=== PATIENT | male | born 1970 | race African-American/Black ===

== ENCOUNTER → 2016-11-30 | Outpatient (CLI) | payer OTHER | END | disposition home or self-care (01) | LOC: HKI 09:42 | PROVIDERS: ATTEND Orthopaedic Surgery | DX: M17.11 Unilateral primary osteoarthritis, right knee (principal); M25.561 Pain in right knee; S83.241D Other tear of medial meniscus, current injury, right knee, subsequent encounter; S83.281D Other tear of lateral meniscus, current injury, right knee, subsequent encounter | CPT/HCPCS: 20610; J7327; Z7500; G0463 ==

== ENCOUNTER → 2017-07-10 | Outpatient (CLI) | payer OTHER ==
--- NOTE | 2017-07-10 10:51 | PN ---
Date/Time of Note Date/Time of Note DATE: 07/10/17 TIME: 10:46 Outpatient Progress Note HPI The patient presents today for a follow-up evaluation on his right knee. We last saw him in November at which point he had his right knee aspirated and injected with Monovisc. He states he had good relief for about 4-5 months but his pain and discomfort have returned. He is having pain with ambulation. He denies any fevers or chills. Injection was therapeutic but has worn off. He presents today for a repeat Monovisc injection to his right knee. Physical Exam On exam today, he is alert and oriented 4, and in no acute distress. Exam of the right knee demonstrates a mild effusion. Range of motion is 0-120. Varus and valgus forces are stable. He has 2+ patellofemoral crepitus. He has diffuse tenderness to palpation along the medial and lateral joint lines. He has a 1+ Adrienne's. Compartments are soft. There is no erythema or warmth noted. Homans sign is negative. He is neurovascularly intact distally. Assessment/Plan Assessment: Right knee osteoarthritis Plan: The patient had a right knee aspiration and Monovisc injection done today. 20 cc of yellow synovial viscous appearing fluid was aspirated without any adverse events. He tolerated the procedure well. I advised him to modify his activity and take [id number] anti-inflammatories or pain medication if needed. We will see him back on an as-needed basis. He is to call the office in the meantime if he has any concerns or adverse events. Procedure: The procedure was fully explained to the patient, and informed consent was obtained prior to the start of the procedure. There is prepped and draped in sterile fashion using Betadine. Ethyl chloride was used to anesthetize the superolateral aspect of the right knee and then the right knee was aspirated, then injected with Monovisc. 20 cc of yellow synovial fluid was aspirated prior to the 4 cc injection of Monovisc. A sterile dressing was then applied. The patient tolerated the procedure well. All questions and concerns were addressed at the time of the procedure. ANTIONETTE CRUZ PA-C Jul 10, 2017 10:50
== END | disposition home or self-care (01) ==
LOC: HKI 10:08
PROVIDERS: ATTEND Orthopaedic Surgery
DX: M17.11 Unilateral primary osteoarthritis, right knee (principal)
CPT/HCPCS: 20610; J7327

== ENCOUNTER → 2017-08-28 | Outpatient (CLI) | payer OTHER ==
--- NOTE | 2017-08-28 14:55 | RADRPT ---
PROCEDURE: Left knee radiographs. CLINICAL INDICATION: Left knee pain. TECHNIQUE: Four views. Weight bearing. Frontal, lateral, oblique, and patellar view. COMPARISON: No prior studies are available for comparison. FINDINGS: There is no fracture or dislocation. There is a small joint effusion. There are degenerative changes with osteophytes arising from the joint margins. There is no joint sp nader narrowing or deformity. There is no lytic or blastic lesion. There is no radiopaque foreign body. IMPRESSION: 1. Small joint effusion. 2. Mild degenerative change. 3. Otherwise unremarkable images of the left knee. RPTAT: QQ .Gumaro Plunkett MD, MD Date Time Electronically viewed and signed by .Gumaro Plunkett MD, MD on 08/28/2017 14:55 .R/
--- NOTE | 2017-08-28 18:45 | HKNOTE ---
DATE OF SERVICE: 08/28/2017 CHIEF COMPLAINT: Left knee pain. HISTORY OF THE PRESENT ILLNESS: This is a 47-year-old male with complaint of left knee pain. He has pain on the outside of his left knee. He has occasional locking, catching and instability of the left knee. He has hemodialysis previous physical therapy with no pain relief. He does not use any assist devices. He does not use any braces. He takes ibuprofen for pain control. He denies any groin or back pain. GAIT: Nonantalgic gait. LEFT KNEE: Neutral alignment and tender over the lateral joint line, nontender over the medial joint line, 0 to 120 degrees range of motion, stable to varus valgus stress. Positive Megha's laterally. Negative anterior drawer and negative posterior drawer. MOTOR STRENGTH: 5 out of 5 hamstrings, tibialis anterior, gastroc soleus, quadriceps and peroneals. PALPABLE PULSES: DP/PT X-rays of the left knee. Three views of the left knee demonstrate minimal degenerative changes. There are no fractures or dislocations. MRI of the left knee: There is a tear of the anterior horn of the lateral meniscus, no tear was identified in the medial meniscus. The cruciate ligaments and collateral ligaments are intact. IMPRESSION: A 47-year-old male with left knee anterior horn lateral meniscal tear. PLAN: He has failed previous nonoperative management. We will request authorization for left knee arthroscopic partial lateral meniscectomy. He will return in 6 weeks. Dictated By: ULICES LILLY/ESDRAS Conf#: [id number] DID#: [id number] PIETRO
== END | disposition home or self-care (01) ==
LOC: HKI 14:53
PROVIDERS: ATTEND Orthopaedic Surgery Adult Reconstructive Orthopaedic Surgery
DX: M23.212 Derangement of anterior horn of medial meniscus due to old tear or injury, left knee (principal)
CPT/HCPCS: 73564; Z7500; G0463

== ENCOUNTER → 2017-10-30 | Outpatient (CLI) | payer OTHER ==
[~2017-10-30] MED LIST: ATEN-51 PO; BENA1TAB14 PO
--- NOTE | 2017-10-31 05:24 | HKNOTE ---
DATE OF SERVICE: CHIEF COMPLAINT: Left knee pain. HISTORY OF PRESENT ILLNESS: This is a 47-year-old male with left knee meniscus tear. He is here to day for his preoperative evaluation. PLAN: I discussed the risks associated with surgery, which include but are not limited to infection , deep venous thrombosis, pulmonary embolism, damage to nerves and blood vessels, progression of art hritis, need for a knee replacement in the future, wound healing problems, heart attack, stroke, ris ks associated with anesthesia and even . I also discussed nonoperative intervention including pain medications, the use of assistive devices, use of a knee brace. The patient would like to proc eed with surgery. Informed consent was obtained. All questions were answered to his satisfaction. He was given a prescription for pain medication. The plan is to proceed with a left knee arthrosco py on 10/31/2017 at [facility]. Dictated By: ULICES LILLY/ESDRAS Conf#: [id number] DID#: [id number]
== END | disposition home or self-care (01) ==
LOC: HKI 09:51
PROVIDERS: ATTEND Orthopaedic Surgery Adult Reconstructive Orthopaedic Surgery
DX: Z01.818 Encounter for other preprocedural examination (principal); M25.562 Pain in left knee
CPT/HCPCS: G0463

== ENCOUNTER 2017-10-31 06:24 | Day surgery (SDC) | payer OTHER ==
[2017-10-30 15:13] VITALS: BMI 31.1
[~2017-10-31] VITALS: Ht 170.2 cm; Wt 91.4 kg
[2017-10-31] VITALS (10 sets, daily range): BP systolic 100–131; BP diastolic 61–86; PULSE 64–80; RESP 12–18; Ht 170.2 cm; Wt 91.4 kg
--- NOTE | 2017-10-31 06:48 | HPN ---
Date/Time of Note Date/Time of Note DATE: 10/31/17 TIME: 06:47 Interval H&P Admission Note Pt. seen H&P reviewed: No system changes SHAHEEN HUGHES PA-C Oct 31, 2017 06:48
[2017-10-31] MEDS ORDERED: ACETAMINOPHEN 1000 MG/100 ML IVPB ONE (07:00)
[2017-10-31] MEDS ORDERED: CELECOXIB 200 MG CAP PO ONE (08:00)
[2017-10-31] MEDS ORDERED: DEXAMETHASONE 4 MG/ML 1 ML INJ IV ONE (08:00)
[2017-10-31] MEDS ORDERED: LANSOPRAZOLE 30 MG CAP PO ONE (08:00)
[2017-10-31] MEDS ORDERED: ACETAMINOPHEN 1000MG/100ML IV 100 ML IVPB ONE (08:00)
[2017-10-31] MEDS ORDERED: VANCOMYCIN 1 GM in NS 250 ML IVPB ONE (08:00)
[2017-10-31] MEDS ORDERED: ONDANSETRON 4 MG INJ IV ONE (08:00)
[2017-10-31] MEDS ORDERED: oxyCODONE (CR) 10 MG TAB [oxyCONTIN] PO ONE (08:00)
[2017-10-31] MEDS ORDERED: LIDOCAINE 1% (MPF) 10 ML INJ INJ ONE (08:39)
[2017-10-31] MEDS ORDERED: TRIAMCINOLONE ACET 40 MG/ML INJ INJ ONE (08:39)
[2017-10-31] MEDS ORDERED: PROPOFOL 20 ML ONE (08:52)
[2017-10-31] MEDS ORDERED: FENTAnyl 50 MCG/ML VIAL IV PRN ×3 (09:00)
[2017-10-31] MEDS ORDERED: MEPERIDINE 25 MG INJ IV PRN (09:00)
[2017-10-31] MEDS ORDERED: HYDROmorphONE (0.2 MG/ML) 10ML SYG IV PRN ×3 (09:00)
[2017-10-31] MEDS ORDERED: KETOROLAC 30 MG INJ IV PRN (09:00)
[2017-10-31] MEDS ORDERED: ONDANSETRON 4 MG INJ IV PRN ×2 (09:00→09:30)
[2017-10-31] MEDS ORDERED: ALBUTEROL 0.083% (NEB) 2.5 MG/3 ML AMP HHN PRN (09:00)
[2017-10-31] MEDS ORDERED: DIPHENHYDRAMINE 50 MG INJ IV PRN (09:00)
[2017-10-31] MEDS ORDERED: EPHEDrine SULFATE 50 MG/5 ML SYG IV PRN (09:00)
[2017-10-31] MEDS ORDERED: LABETALOL HCL 20MG INJ IV PRN (09:00)
[2017-10-31] MEDS ORDERED: OXYCODONE/ACETAMINOPHEN (5/325) TAB PO PRN ×2 (09:00)
[2017-10-31] MEDS ORDERED: hydrALAzine 20 MG INJ IV PRN (09:00)
[2017-10-31] MEDS ORDERED: METOCLOPRAMIDE 10 MG INJ IV PRN (09:00)
[2017-10-31] MEDS ORDERED: HYDROCODONE/APAP (10/325) TAB PO PRN (09:30)
[2017-10-31] MEDS ORDERED: HYDROCODONE/APAP (5/325) TAB PO PRN (09:30)
[2017-10-31] MEDS ORDERED: morphine 10 MG INJ IV PRN (09:30)
[2017-10-31] MEDS ORDERED: LIDOCAINE 2% (SDV) 5 ML INJ ONE (09:31)
[2017-10-31] MEDS ORDERED: ROCURONIUM 50 MG INJ ONE (09:31)
[2017-10-31] MEDS ORDERED: SUGAMMADEX SODIUM 200 MG/2 ML VIAL IV ONE (09:32)
--- NOTE | 2017-10-31 09:33 | SIPON ---
Date/Time of Note Date/Time of Note DATE: 10/31/17 TIME: 09:32 Operative Report Preoperative Diagnosis Left knee posterior horn medial meniscus tear Postoperative Diagnosis Same Operation/Procedure Performed Left knee arthroscopy with partial medial menisectomy Left knee steroid injection Surgeon Mukesh Garrett MD optometrist assistant None Anesthesia: general Estimated blood loss: none Transfusion Required none Specimen None Grafts/Implants none Complications none MUKESH GARRETT MD Oct 31, 2017 09:33
--- NOTE | 2017-10-31 11:57 | OPR ---
DATE OF OPERATION: 10/31/2017 SURGEON: Ulices Garrett MD STATISTICS PROFESSOR: None. PREOPERATIVE DIAGNOSIS: Left knee posterior horn medial meniscus tear. POSTOPERATIVE DIAGNOSIS: Left knee posterior horn medial meniscus tear. OPERATION PERFORMED: 1. Left knee arthroscopy with partial medial meniscectomy. 2. Left knee corticosteroid injection. ANESTHESIOLOGIST: Dr. Mayes. ANESTHESIA: General. ESTIMATED BLOOD LOSS: Minimal. COMPLICATIONS: None. SPECIMENS: None. TOURNIQUET TIME: Ten minutes at 250 mmHg. DISPOSITION: To PACU in stable condition. INDICATION FOR PROCEDURE: This is a 47-year-old male with left knee posterior horn medial meniscus tear who had failed nonoperative management. Risks, benefits, and alternatives of surgical interven tion were discussed with the patient and informed consent was obtained. The risks of surgery include but are not limited to infection, deep venous thrombosis, pulmonary emb olism, damage to neurovascular structures, numbness, progression of arthritis, need for additional s urgery including knee replacement in the future, heart attack, stroke and even . DESCRIPTION OF PROCEDURE: The patient was met in the preoperative suite and the correct operative s ite was confirmed and marked. Patient was then brought into operating room. After induction of gen eral anesthesia, he was placed in the supine position on the operating room table. A tourniquet was applied to the left upper thigh and the left lower extremity was prepped and draped in the usual st erile fashion. Before starting, a timeout was taken to identify the correct operative site and conf irm that preoperative antibiotics consisting of 1 gram of IV vancomycin was administered. At this p oint, the left leg was then elevated and exsanguinated with an Esmarch and the tourniquet was then i nsufflated for the above noted time. A stab incision was made for the anterolateral portal. The trocar was then introduced and the herman la was then visualized and no abnormalities were seen. The arthroscope was then introduced into the patellofemoral joint and into the medial gutter. No plica or loose bodies were identified. There was extensive synovitis visualized. The arthroscope was then introduced into the medial compartment . 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 The chondromalacia was noted to be s table and without need for chondroplasty. At this point, determination of the medial portal was mad e using a spinal needle and a stab incision was made. Next, a probe was then introduced into the me dial compartment and a tear of the posterior horn of the medial meniscus was seen. The 3.5 mm Stryk er shaver was then introduced, and a partial medial meniscectomy was performed until a stable margin was achieved. The probe was once again inserted and the remaining meniscus was noted to be stable. The arthroscope was then introduced into the intercondylar notch. The anterior and posterior cruci ate ligaments were noted to be intact. The arthroscope was then introduced into the lateral compart ment. No abnormalities were seen within the lateral compartment. The instruments were removed. Th ere was no evidence of breakage. A mixture of 1 mL of Kenalog, along with 3 mL of 1% lidocaine was distilled into the joint. The portal sites were closed using a 3-0 nylon interrupted [id number] t fashion. A sterile dressing followed by a total groin Gallito wrap was applied. The patient was awak ened and taken to the PACU in stable condition. POSTOPERATIVE CARE: He will be weightbearing as tolerated. He will receive prescriptions for pain control. Crutches will be provided if he is unable to ambulate without the use of assistive devices . He was instructed to frequently flex and extend the knee as well as the ankle. He will follow up at the [facility] within 2 weeks postoperatively. Dictated By: ULICES LILLY/ESDRAS Conf#: [id number] DID#: [id number]
== END 2017-10-31 11:30 | disposition home or self-care (01) ==
LOC: SDS 06:24
PROVIDERS: ATTEND Orthopaedic Surgery Adult Reconstructive Orthopaedic Surgery
DX: S83.242A Other tear of medial meniscus, current injury, left knee, initial encounter (principal); E66.9 Obesity, unspecified; I10 Essential (primary) hypertension; X58.XXXA Exposure to other specified factors, initial encounter; Y93.89 Activity, other specified; Y92.89 Other specified places as the place of occurrence of the external cause; Y99.8 Other external cause status
CPT/HCPCS: 29881; J0131; J1100; J1885; J2175; J2405; J3010; J3370; Z7512; Z7610; J1200

== ENCOUNTER → 2017-11-14 | Outpatient (CLI) | END | disposition home or self-care (01) ==

== ENCOUNTER → 2017-12-07 | Outpatient (CLI) | END | disposition home or self-care (01) ==

== ENCOUNTER → 2018-04-17 | Outpatient (CLI) | END | disposition home or self-care (01) ==